=== PATIENT | male | born 2000 | race Hispanic/Latino ===

== ENCOUNTER 2021-05-20 15:54 | Emergency (ER) | payer MEDICAID ==
[~2021-05-20] VITALS: Ht 167.6 cm; Wt 104.3 kg
[2021-05-20 16:00] VITALS: BP 161/96
[2021-05-20] MEDS ORDERED: IBUP-2070 PO (16:32)
== END 2021-05-20 16:55 | disposition home or self-care (01) ==
LOC: EDH 15:54
DX: G56.02 Carpal tunnel syndrome, left upper limb (principal); R20.0 Anesthesia of skin; J45.909 Unspecified asthma, uncomplicated; Z88.8 Allergy status to other drugs, medicaments and biological substances

== ENCOUNTER 2024-12-25 14:02 | Emergency (ER) | payer BC, MEDICAID ==
[~2024-12-25] VITALS: Ht 167.6 cm; Wt 72.6 kg
[~2024-12-25 14:02] MED LIST: IBUP-1492 PO
--- NOTE | 2024-12-25 14:10 | ERN ---
ED Note History of Present Illness Stated Complaint: ANXIETY Chief Complaint: Anxiety/Panic Attack Time Seen by MD: 14:05 Dictation: PATIENT IS A 24-YEAR-OLD MALE STATES HE HAS HAD PROBLEMS WITH ANXIETY AND FEELING A CRAWFORD OF ADRENALINE WHEN HE IS AT WORK FOR THE LAST WEEK. HE ALSO STATES HE IS ABLE TO GO TO SLEEP BUT IS SLEEP IS ALWAYS INTERRUPTED AND HE WAKES UP DURING THE MIDDLE OF THE NIGHT. WHAT BROUGHT HIM TO THE HOSPITAL TODAY HE STATES WHILE HE WAS WORK EARLIER TODAY HE HAD LEFT ANTERIOR CHEST PAIN DID NOT RADIATE. STATES IT ONLY LASTED BRIEFLY AND THEN WAS GONE. HE DENIES ANY HISTORY OF HYPERTENSION DIABETES CAD VALVE REPLACEMENTS NO STENTS NO PROGRAMMING DEVELOPMENT PROJECT MANAGER'S NO PRIMARY CARE DOCTOR. HE DENIES SUICIDAL OR HOMICIDAL IDEATION Allergies: Coded Allergies: montelukast (Unverified Allergy, Unknown, 11/24/18) Home Meds Active Scripts Hydroxyzine Pamoate (Hydroxyzine Pamoate) 100 Mg Capsule, 1 CAP PO HS for Insomnia for 30 Days, #30 CAP 0 Refills Prov:DUY RAMESH CORE COMPOSER MACHINE TENDER 12/25/24 Ibuprofen (Ibuprofen) 600 Mg Tablet, 600 MG PO Q6H PRN for PAIN, #15 TAB Prov:ARGENIS ARIZA SUPPLIER DIVERSITY DIRECTOR 05/20/21 Past Medical History Past Medical History: Asthma Surgical History: None RN Note Reviewed/Agreed w/PFSH: Yes Review of System Dictation CONSTITUTIONAL: NEGATIVE EXCEPT FOR HPI HEAD/FACE: NEGATIVE EXCEPT FOR HPI EENT: NEGATIVE EXCEPT FOR HPI RESPIRATORY: NEGATIVE EXCEPT FOR HPI CHEST PAIN GASTROINTESTINAL/ABDOMINAL: NEGATIVE EXCEPT FOR HPI GENITOURINARY: NEGATIVE EXCEPT FOR HPI MUSCULOSKELETAL: NEGATIVE EXCEPT FOR HPI INTEGUMENTARY: NEGATIVE EXCEPT FOR HPI NEUROLOGICAL/PSYCH: NEGATIVE EXCEPT FOR HPI ANXIETY/INSOMNIA HEMATOLOGIC/LYMPHATIC: NEGATIVE EXCEPT FOR HPI ALL SYSTEMS NEGATIVE, EXCEPT NOTED ABOVE. 13 POINT REVIEW OF SYSTEMS ASSESSED AND ALL NEGATIVE EXCEPT FOR ABOVE. Initial Vital Sign VS Vital Signs Date Time Temp Pulse Resp B/P (MAP) Pulse Ox O2 Delivery O2 Flow Rate FiO2 12/25/24 14:04 98.8 88 16 150/92 98 Room Air 0 12/25/24 15:28 21 Physical Exam Dictation VITAL SIGNS REVIEWED GENERAL APPEARANCE: ALERT, ORIENTED X 3, NO ACUTE DISTRESS, WELL DEVELOPED, NOURISHED. 0/10 PAIN ON ARRIVAL. HEAD AND FACE: NON-TRAUMATIC. EYES: PERRL, PINK CONJUNCTIVAS, EYELID NO TRAUMA, ANTERIOR CHAMBER WITH ARCUS SENILIS. EARS: PINNAS INTACT AND NO SIGNS OF TRAUMA OR ERYTHEMA EAR CANALS CLEAR AND NO DISCHARGE TM NO ERYTHEMA NOSE: NO DISCHARGE, NO BLEEDING. OROPHARYNX: MOUTH NORMAL, TONGUE PINK, PHARYNX CLEAR,NO ERYTHEMA, TONSILS NO EXUDATES, NO ABSCESSES NOTED, MUCOUS MEMBRANE MOIST NECK: SUPPLE, NON-TENDER, NO THYROMEGALY, NO MASSES, NO JVD, NO BRUITS BREAST:DEFERRED CHEST:NO TENDERNESS, NO CREPITUS, NO PARADOXICAL MOVEMENT, NO RETRACTIONS LUNGS:CLEAR, WELL-VENTILATED, SYMMETRIC, NO RALES, NO WHEEZING, NO RHONCHI, NO STRIDOR, GOOD BREATH SOUNDS BILATERALLY HEART: REGULAR RATE, REGULAR RHYTHM, NO MURMUR, NO GALLOPS VASCULAR: NO PERIPHERAL EDEMA, ABDOMEN: SOFT, POSITIVE BOWEL SOUNDS, NONDISTENDED, NO GUARDING, NONTENDER, NO REBOUND, NO MASSES NO HEPATOMEGALY, NO SPLENOMEGALY, NO FIERRO'S SIGN, NO HERNIAS. RECTAL: DEFERRED GENITAL: DEFERRED NEUROLOGICAL: NORMAL SPEECH, MOTOR FUNCTION INTACT, SENSORY FUNCTION INTACT EUTHYMIC, DENIES SUICIDAL OR HOMICIDAL IDEATION MUSCULOSKELETAL: NECK NONTENDER, FULL RANGE OF MOTION, BACK NONTENDER, FULL RANGE OF MOTION, EXTREMITIES: NONTENDER, FULL RANGE OF MOTION SKIN: COLOR PINK, DRY, NO TURGOR, NO RASH, NO LACERATIONS, NO ABRASIONS, NO CONTUSIONS. LYMPHATIC: DEFERRED Results (Laboratory/Radiology) Laboratory/Radiology Laboratory Tests Test 12/25/24 14:18 12/25/24 15:27 White Blood Count 5.9 K/uL (4.8-10.8) Red Blood Count 4.94 MIL/uL (4.50-6.20) Hemoglobin 15.7 g/dL (14.0-18.0) Hematocrit 45.6 % (42-54) Mean Corpuscular Volume 92.3 fL (79-99) Mean Corpuscular Hemoglobin 31.8 pg (27.0-33.0) Mean Corpuscular Hemoglobin Concent 34.4 g/dL (32.0-36.0) Red Cell Distribution Width 12.1 % (11.0-15.5) Platelet Count 250 K/uL (130-400) Mean Platelet Volume 9.0 fL (7.5-10.5) Immature Granulocyte % (Auto) 0.2 % (0-1) Neutrophils (%) (Auto) 69.2 % (40.0-77.0) Lymphocytes (%) (Auto) 17.3 % (21.0-51.0) L Monocytes (%) (Auto) 12.5 % (3.0-13.0) Eosinophils (%) (Auto) 0.3 % (0.0-8.0) Basophils (%) (Auto) 0.5 % (0.0-5.0) Neutrophils # (Auto) 4.1 K/uL (1.8-7.7) Lymphocytes # (Auto) 1.0 K/uL (1.0-4.8) Monocytes # (Auto) 0.7 K/uL (0.1-1.0) Eosinophils # (Auto) 0.02 K/uL (0.00-0.70) Basophils # (Auto) 0.03 K/uL (0.00-0.20) Absolute Immature Granulocyte (auto 0.01 K/uL (0-1) Nucleated Red Blood Cells 0.0 % (0.0-0.19) Sodium Level 139 mmol/L (136-145) Potassium Level 4.5 mmol/L (3.5-5.1) Chloride Level 102 mmol/L (101-111) Carbon Dioxide Level 33 mmol/L (21-32) H Blood Urea Nitrogen 13 mg/dL (7-18) Creatinine 0.9 mg/dL (0.5-1.3) Glomerular Filtration Rate Calc 123 mL/min (>90) Random Glucose 80 mg/dL (70-105) Total Calcium 9.2 mg/dL (8.5-10.1) Magnesium Level 2.00 mg/dL (1.80-2.40) Troponin I High Sensitivity < 4 ng/L (4-75) L Urine Opiates Screen NEGATIVE (NEGATIVE) Urine Barbiturates Screen NEGATIVE (NEGATIVE) Urine Phencyclidine Screen NEGATIVE (NEGATIVE) Urine Amphetamines Screen NEGATIVE (NEGATIVE) Urine Benzodiazepines Screen NEGATIVE (NEGATIVE) Urine Cocaine Screen NEGATIVE (NEGATIVE) Urine Marijuana (THC) Screen POSITIVE (NEGATIVE) H EXAM: CR Chest, 1 View. CLINICAL HISTORY: CHEST PAIN COMPARISON: None provided. FINDINGS: LUNGS: There is no mass, infiltrate, or acute pulmonary abnormality. PLEURAL SPACES: No evidence of pleural effusion or pneumothorax. MEDIASTINUM: The cardiomediastinal silhouette is within normal limits. BONES: No aggressive appearing osseous lesion seen. IMPRESSION: No acute cardiopulmonary pathology is evident. / Labs Reviewed?: Yes EKG: (+) NSR EKG Comment: EKG/NORMAL SINUS RHYTHM/HEART RATE 82/AXIS NORMAL/NO ECTOPY ED Course ED Course Orders Procedure Category Date Status Time Cbc With Differential LAB 12/25/24 Complete 14:08 Chest 1vw RAD 12/25/24 Resulted 14:08 12 Lead Ekg Tracing- EKG 12/25/24 Logged Technical 14:08 Magnesium LAB 12/25/24 Complete 14:08 Troponin I High LAB 12/25/24 Complete Sensitivity 14:08 Basic Metabolic Panel LAB 12/25/24 Complete 14:08 Drug Screen Urine LAB 12/25/24 Complete 15:32 Vital Signs Date Time Temp Pulse Resp B/P (MAP) Pulse Ox O2 Delivery O2 Flow Rate FiO2 12/25/24 15:28 98.4 86 16 146/88 98 Room Air* 0 21 12/25/24 14:04 98.8 88 16 150/92 98 Room Air 0 1525/patient will be discharged home after normal cardiac workup. He is aware he is mildly dehydrated increase fluids and follow up with his doctor HEART Score Response (Comments) Value History: Low suspicion (0) 0 EKG: Normal 0 Age: < 45yrs (0) 0 Risk Factors: No known risk factors (0) 0 Initial Troponin: Normal limit (0) 0 Total 0 Medical Decision Making MDM MDM: Differential diagnosis: ACS/AMI/electrolyte imbalance dehydration/pneumonia/bronchitis/anxiety/panic attack Rationale: Tests considered and ordered secondary to shared decision making include: Radiology/labs/EKG Previous outside records reviewed: Old ER visits. Risk of complication and/or morbidity or mortality of patient management: None Medications-Per medication reconciliation Need for hospitalization: Patient does not meet criteria for hospitalization. None Need for emergency major/minor surgery: No There are no social concerns with this patient. Prescription drug management hydroxyzine Prescriptions will include symptomatic care Patient's prior external medical records from other ER visits were reviewed by me as indicated. Prior testing and results from previous visits were reviewed. Prior tests were taken into account with medical decision making and resource utilization, independent historian/historians were used to obtain complete medical history. I independently interpreted the test that were performed, results were reviewed by me and considered findings on radiology if ordered. Medical management and examination interpretation discussions were had by me with other qualified healthcare professionals as indicated for the patient's care. DX & DISP Disposition: Discharge Decision to Admit Time: 15:26 Departure Impression: Primary Impression: Atypical chest pain Additional Impressions: Panic attack, Insomnia Condition: Stable Scripts Hydroxyzine Pamoate (Hydroxyzine Pamoate) 100 Mg Capsule 1 CAP PO HS for Insomnia for 30 Days, #30 CAP 0 Refills Prov: DUY RAMESH NP 12/25/24 Additional Instructions: Follow-up with primary care provider in 1 to 2 days. Take medications as direct ed here in the emergency room. Okay to continue home medications unless otherwise discussed during your visit in the emergency room today. Return to your nearest emergency room if symptoms worsen or if there is no improvement. Call 911 if you need immediate assistance. Take Tylenol or Motrin [id number] as needed and if no contraindications are present. Increase oral hydration. A wound culture or urine culture was ordered here in the emergency room department please follow-up with primary care provider and advise them to get repeat ports from our facility. If you had any Yoel wrap/splints that were applied here, please do not remove them until you see your primary care or specialty. Follow up with with one of the doctor provided you in the next 1-2 days. Call for an appointment. Take hydroxyzine as needed for insomnia, do not operate a motor vehicle and take hydroxyzine. Referrals: DIGNA MILIAN III, MD (PCP) Time of Disposition: 15:26 I have reviewed the case, and I agree with, Diagnosis and Plan DUY RAMESH NP Dec 25, 2024 14:10 AYSE HAIDER DO Dec 25, 2024 19:05
[2024-12-25 14:33] LABS: IMMATURE GRANULOCYTE ABSOLUTE 0.01 K/uL (0-1); NUCLEATED RED BLOOD CELLS 0.0 % (0.0-0.19); PLATELET COUNT (AUTO) 250 K/uL (130-400); RED BLOOD CELL COUNT(AUTO) 4.94 MIL/uL (4.50-6.20); RED CELL DISTRIBUTION WIDTH 12.1 % (11.0-15.5); WHITE BLOOD COUNT (AUTO) 5.9 K/uL (4.8-10.8)
[2024-12-25 14:46] LABS: CREATININE 0.9 mg/dL (0.5-1.3); GLOMERULAR FILTR. RATE CALC 123.0 mL/min (>90); GLUCOSE,RANDOM 80.0 mg/dL (70-105); SODIUM SERUM 139.0 mmol/L (136-145); UREA NITROGEN, BLOOD 13.0 mg/dL (7-18)
--- NOTE | 2024-12-25 14:58 | HMCIMG ---
EXAM: CR Chest, 1 View. CLINICAL HISTORY: CHEST PAIN COMPARISON: None provided. FINDINGS: LUNGS: There is no mass, infiltrate, or acute pulmonary abnormality. PLEURAL SPACES: No evidence of pleural effusion or pneumothorax. MEDIASTINUM: The cardiomediastinal silhouette is within normal limits. BONES: No aggressive appearing osseous lesion seen. IMPRESSION: No acute cardiopulmonary pathology is evident. /[place]
[2024-12-25] MEDS ORDERED: HYDR100C2 PO (15:27)
[2024-12-25 15:28] VITALS: BP 146/88; PULSE 86; RESP 16; TEMP 98.4; O2SAT 98
[2024-12-25 15:49] LABS: AMPHET/METH SCREEN,URINE NEGATIVE (NEGATIVE); BARBITURATE SCREEN, URINE NEGATIVE (NEGATIVE); CANNABINOID SCREEN,URINE POSITIVE (NEGATIVE); COCAINE SCREEN,URINE NEGATIVE (NEGATIVE)
--- NOTE | 2024-12-25 21:12 | EKG ---
[facility] Test Date: 2024-12-25 Test Time: 14:24:44 Pat Name: DEBBIE BLACKMON Department: ED Room: Gender: M Batch Records Clerk: [id number] : 2000 Requested By: DUY RAMESH Order Number: [id number] Reading MD: Measurements Intervals [place] Rate: 82 P: 76 WV: 151 QRS: 68 QRSD: 96 T: 35 QT: 329 QTc: 386 Interpretive Statements Sinus rhythm No previous ECG available for comparison Please click the below link to view image of tracing.
== END 2024-12-25 15:38 | disposition home or self-care (01) ==
LOC: EDH 14:02
DX: R07.89 Other chest pain (principal); F41.0 Panic disorder [episodic paroxysmal anxiety]; G47.00 Insomnia, unspecified; J45.909 Unspecified asthma, uncomplicated
CPT/HCPCS: 36415; 71045; 80048; 80305; 83735; 84484; 85025; 93005; 99284